=== PATIENT | male | born 1945 | race Caucasian/White ===

== ENCOUNTER → 2016-12-04 | Outpatient (CLI) | payer OTHER ==
[2016-12-04 14:16] LABS: BUN 21 mg/dL (7-18); GFR (ESTIMATED) 60 ML/MIN (>60)
== END ==
LOC: LAB 10:34
PROVIDERS: Internal Medicine
DX: I10 Essential (primary) hypertension (principal); R73.01 Impaired fasting glucose; E66.09 Other obesity due to excess calories